=== PATIENT | female | born 1975 | race Caucasian/White ===

== ENCOUNTER 2016-05-07 16:06 | Emergency (ER) | payer OTHER ==
[~2016-05-07] VITALS: Ht 162.6 cm; Wt 88.0 kg
[~2016-05-07 16:06] MED LIST: ATIVAN1 MG PO; BENADRYL ALLERG25 MG PO; BENADRYL25 MG PO; CALCIUM + D 601 EACH PO; CLEOCIN150 MG PO; CYMBALTA30 MG PO; DICYCLOMINE HCL10 MG PO; DILAUDID2 MG PO; ERGOCALCIF50000 UNIT PO; EXCEDRIN EXTRA1 EACH PO; FISH OIL 1,0001 EAC7 PO; FLEXERIL10 MG PO; GABAPENTIN300 MG PO; GARCINIA CAMBO1 EACH PO; HYDROCODON-ACE1 EAC7 PO; HYDROCODONE-AP1 EAC8 PO; HYDROMORPHONE HC2 MG PO; IBUPROFEN800 MG PO; LORAZEPAM1 MG PO; MELOXICAM15 MG PO; MOTRIN600 MG PO; NAPROSYN500 MG PO; OMEPRAZOLE40 M1 PO; OXYCODONE-ACET1 EACH PO; PERCOCET 5/31 TABLET PO; PHENERGAN25 MG PR; PREDNISONE20 MG PO; ROBAXIN-750750 MG PO; TRAMADOL HCL50 MG PO; TYLENOL EXTRA500 MG PO; TYLENOL WITH C1 EACH PO; ULTRACET1 TABLET PO; VALIUM5 MG PO; VENTOLIN HFA18 GM IH; VICODIN 5-3001 EACH PO; VITAMIN B-12250 MCG PO; VITAMIN B-12500 MC2 PO; VITAMIN D1000 INTUN PO; VITAMIN D32000 UNI1 PO; ZITHROMAX Z-PA250 MG PO; ZOFRAN ODT4 MG PO; ZOFRAN4 MG PO; ZYRTEC10 M2 PO; [UNRECOGNIZED DRUG - OTHER]
[2016-05-07] MEDS ORDERED: BROVANA15 MCG/2 M IH (16:27)
[2016-05-07] MEDS ORDERED: FLUCONAZOLE150 MG PO (16:29)
[2016-05-07] MEDS ORDERED: FLEXERIL10 MG PO (17:17)
[2016-05-07] MEDS ORDERED: ULTRAM50 MG PO (17:17)
[2016-05-07 17:30] VITALS: BP 109/77
== END 2016-05-07 17:33 | disposition home or self-care (01) ==
LOC: EME 16:06
DX: M54.41 Lumbago with sciatica, right side (principal); S39.012A Strain of muscle, fascia and tendon of lower back, initial encounter; X50.1XXA Overexertion from prolonged static or awkward postures, initial encounter; J45.909 Unspecified asthma, uncomplicated
CPT/HCPCS: 99281; 99285; J1885; J3010

== ENCOUNTER 2016-08-25 19:33 | Emergency (ER) | payer OTHER ==
[~2016-08-25] VITALS: Ht 162.6 cm; Wt 87.5 kg
[~2016-08-25 19:33] MED LIST changes: +BROVANA15 MCG/2 M IH; +FLUCONAZOLE150 MG PO; +ULTRAM50 MG PO
[2016-08-25] MEDS ORDERED: MOTRIN800 MG PO (20:50)
[2016-08-25] MEDS ORDERED: NORCO 10/3251 TABLET PO (20:50)
[2016-08-25] MEDS ORDERED: VALTREX1000 MG PO (20:50)
[2016-08-25] MEDS ORDERED: INDOCIN25 MG PO (20:56)
[2016-08-25 21:26] VITALS: BP 123/88
== END 2016-08-25 21:26 | disposition home or self-care (01) ==
LOC: EME 19:33
DX: B02.9 Zoster without complications (principal); Z88.6 Allergy status to analgesic agent; Z88.5 Allergy status to narcotic agent; Z88.0 Allergy status to penicillin; Z72.0 Tobacco use
CPT/HCPCS: 99281; 99285; J3010

== ENCOUNTER 2016-10-28 20:36 | Emergency (ER) | payer OTHER ==
[~2016-10-28] VITALS: Ht 162.6 cm; Wt 80.7 kg
[~2016-10-28 20:36] MED LIST changes: +INDOCIN25 MG PO; +MOTRIN800 MG PO; +NORCO 10/3251 TABLET PO; +VALTREX1000 MG PO
[2016-10-28 21:16] LABS: ADD MIUA? NO; BILIRUBIN NEGATIVE; BLOOD NEGATIVE; COLOR STRAW ((YELLOW)); GLUCOSE (STRIP) NEGATIVE; KETONES NEGATIVE; LEUKOCYTES NEGATIVE; NITRITE NEGATIVE; PROTEIN (STRIP) NEGATIVE; SPECIFIC GRAVITY 1.008 (1.000-1.030); UCUL ADDED? NO; UROBILINOGEN 0.2 MG/DL (0.2-1.0)
[2016-10-28 21:48] LABS: HEMATOCRIT 43.3 % (36.0-46.0); MCH 29.4 PG (29.0-34.0); MCHC 34.6 G/DL (30.0-36.0); MCV 84.9 FL (83-99); MEAN PLAT.VOLUME 10.4 uM^3 (9.5-12.4); PLATELET COUNT 331 K/uL (156-360); RBC DIS.WIDTH-CV 11.9 % (11.8-14.6); RBC DIS.WIDTH-SD 36.4 % (39-53); WHITE BLOOD COUNT 9.8 K/uL (4.1-10.2)
[2016-10-28 21:56] LABS: CHLORIDE 107 mEq/L (99-109); POTASSIUM 3.8 mEq/L (3.7-5.4); SODIUM 138 mEq/L (136-147)
[2016-10-28 21:58] LABS: GLUCOSE 107 mg/dL (70-99)
[2016-10-28 21:59] LABS: ANION GAP 10 MEQ/L (2-14)
[2016-10-28 22:00] LABS: TOTAL BILIRUBIN 0.5 mg/dL (0.0-1.0)
[2016-10-28 22:01] LABS: ALKALINE PHOSPHATASE 80 IU/L (3-129)
[2016-10-28 22:02] LABS: GFR ESTIMATE (CALCULATED) > 59 mL/min/
[2016-10-28 22:03] LABS: UREA NITROGEN (BUN) 11 mg/dL (9-23)
[2016-10-28] MEDS ORDERED: NAPROSYN500 MG PO (22:34)
[2016-10-28] MEDS ORDERED: ROBAXIN750 MG PO (22:34)
[2016-10-28 23:13] VITALS: BP 122/78
== END 2016-10-28 23:14 | disposition home or self-care (01) ==
LOC: EME 20:36
PROVIDERS: Physician Assistant
DX: S76.011A Strain of muscle, fascia and tendon of right hip, initial encounter (principal); R10.9 Unspecified abdominal pain; R35.0 Frequency of micturition; X58.XXXA Exposure to other specified factors, initial encounter; Y93.01 Activity, walking, marching and hiking; Y92.828 Other wilderness area as the place of occurrence of the external cause; Z87.442 Personal history of urinary calculi; Z88.6 Allergy status to analgesic agent; F17.200 Nicotine dependence, unspecified, uncomplicated
CPT/HCPCS: 74176; 80053; 81003; 85027; 99281; 99284; J1885; J2405; J3010; J7030

== ENCOUNTER → 2017-08-04 | Outpatient (CLI) | payer OTHER ==
[~2017-08-04] MED LIST changes: +ROBAXIN750 MG PO
== END | disposition home or self-care (01) ==
LOC: CDC 15:54
DX: I49.9 Cardiac arrhythmia, unspecified (principal); R94.31 Abnormal electrocardiogram [ECG] [EKG]
CPT/HCPCS: 93000